=== PATIENT | male | born 1990 | race African-American/Black ===

== ENCOUNTER 2018-09-17 19:35 | Emergency (ER) | payer BC ==
[2018-09-17 20:07] VITALS: TEMP 99.6; O2SAT 100
[2018-09-17] MEDS: KETOROLAC TROMETHAMINE INJ 30 MG/ML VIAL IV ONE (20:37)
--- NOTE | 2018-09-17 20:48 | RAD ---
EXAM DESCRIPTION: Chest,1 View CLINICAL HISTORY: 28 years Male, chest pain Comparison: None FINDINGS: Single AP view of the chest Cardiomediastinal silhouette is within normal limits. No focal lung consolidation. No pleural effusion. No pneumothorax. No acute osseous finding. IMPRESSION: No acute chest finding. Electronically signed by: Lois Brunson MD 09/17/2018 8:47 PM [employer]
--- NOTE | 2018-09-17 21:14 | ED.PDOC ---
History of Present Illness - General Chief Complaint: Blood Pressure Problem Time Seen by Provider: 09/17/18 20:15 Source: patient Exam Limitations: no limitations - History of Present Illness Initial Comments: PT C/O NOT FEELING WELL. HAS CHRONIC HYPERTENSION BUT HAS NOT BEEN TAKING HIS MEDICATION ROUTINELY. TODAY WAS EATING WHEN HE BEGAN TO NOT FEEL WELL. FELT LIKE HIS BP WAS UP SO HE WENT HOME AND TOOK HIS MEDICATION. CONTINUED NOT TO FEEL WELL SO HE CAME FOR EVALUATION. Severity: mild Improving Factors: nothing Worsening Factors: nothing Associated Symptoms: diaphoresis Allergies/Adverse Reactions: Allergies NO KNOWN ALLERGY Allergy (Verified 09/17/18 19:52) Home Medications: Ambulatory Orders Amlodipine Besylate [Amlodipine Besylate] 5 mg PO DAILY 09/17/18 Metoprolol Tartrate [Lopressor] 25 mg PO BID 09/17/18 Review of Systems - Review of Systems Constitutional: Denies: chills, fever EENTM: States: no symptoms reported Respiratory: Denies: cough, short of breath Cardiology: Denies: chest pain, palpitations Gastrointestinal/Abdominal: Denies: nausea, vomiting Genitourinary: States: no symptoms reported Musculoskeletal: States: no symptoms reported Skin: States: other - SLIGHT DIAPHORESIS Neurological: Denies: numbness, weakness Endocrine: States: no symptoms reported Hematologic/Lymphatic: States: no symptoms reported Past Medical History (General) - Patient Medical History Hx Stroke: No Hx Congestive Heart Failure: No Hx Hypertension: Yes Hx Diabetes: No Hx MRSA: No - Vaccination History Hx Influenza Vaccination: No Hx Pneumococcal Vaccination: No - Social History Hx Tobacco Use: Yes Hx Alcohol Use: No - Social use Family Medical History - Family History Father Living Status: Still Living Hx Family Hypertension: Yes Physical Exam - Physical Exam General Appearance: Alert, No apparent distress Eye Exam: bilateral normal Ears, Nose, Throat: hearing grossly normal, normal ENT inspection Neck: full range of motion, supple Respiratory: lungs clear, normal breath sounds Cardiovascular/Chest: regular rate, rhythm, no murmur Gastrointestinal/Abdominal: non tender, soft, no organomegaly Back Exam: normal inspection, no CVA tenderness Extremity: normal range of motion, non-tender Neurologic: no motor/sensory deficits, alert, normal mood/affect, oriented x 3 Skin Exam: normal color, warm/dry Lymphatic: no adenopathy Progress - Progress Progress: 09/17/18 23:22 REPEAT LAB NEG. VSS. STILL SOMEWHAT HTN BUT WILL NOT TREAT PT JUST TOOK HIS MEDS AT 1800. ENCOURAGED HIM TO STAY COMPLIANT AND F/U WITH PCP HE AGREED. - EKG/XRAY/CT EKG: Sinus - RATE: 68, NL AXIS, NL INTERVALS, LVH, , nonspecific ST T wave Chg - NAIP, NO OLD FOR COMPARISON XRAY: chest - LUIZ Departure - Departure Clinical Impression: Elevated blood pressure reading, Malaise, Non compliance with medical treatment Hypertension Qualifiers: Hypertension type: essential hypertension Qualified Code(s): I10 - Essential ( primary) hypertension Time of Disposition: 23:23 Disposition: Discharge to Home or Self Care Condition: Good Departure Forms: ED Discharge - Pt. Copy, Patient Portal Self Enrollment Instructions: DI for High Blood Pressure Home Medications: Ambulatory Orders Amlodipine Besylate [Amlodipine Besylate] 5 mg PO DAILY 09/17/18 Metoprolol Tartrate [Lopressor] 25 mg PO BID 09/17/18
[2018-09-17 23:31] VITALS: BP 131/75
== END 2018-09-17 23:30 | disposition home or self-care (01) ==
LOC: ER 19:35
DX: I10 Essential (primary) hypertension (principal); R53.81 Other malaise; Z91.14 Patient's other noncompliance with medication regimen
CPT/HCPCS: 36415; 71045; 80053; 83880; 84484; 85025; 93005; J1885

== ENCOUNTER 2020-11-25 16:05 | Emergency (ER) | payer BC ==
--- NOTE | 2020-11-25 16:15 | ED.PDOC ---
History of Present Illness - General Time Seen by Provider: 11/25/20 16:07 Source: patient, RN notes reviewed, Vital Signs reviewed Exam Limitations: no limitations - History of Present Illness Initial Comments: Pt has h/o HTN and vertigo. Presents to ED with 1 day h/o "feeling like my head is retaining water." States his ears feel full. He denies fever, congestion, cough, sore throat, ear pain or SOB. States he has been urinating more than usual today, but denies dysuria or hematuria. No NVD or abdominal pain. Allergies/Adverse Reactions: Allergies NO KNOWN ALLERGY Allergy (Verified 09/17/18 19:52) Home Medications: Ambulatory Orders Amlodipine Besylate 10 mg PO DAILY 09/17/18 Hydrochlorothiazide 12.5 mg PO DAILY 11/25/20 Review of Systems - Review of Systems Constitutional: Denies: chills, fever, weakness EENTM: Denies: blurred vision, ear pain, ear discharge, nose pain, nose congestion, throat pain, mouth pain Respiratory: Denies: cough, short of breath Cardiology: Denies: chest pain, palpitations, syncope Gastrointestinal/Abdominal: Denies: abdominal pain, diarrhea, nausea, vomiting Musculoskeletal: Denies: back pain, neck pain Neurological: Denies: headache, numbness, tingling All other Systems: Reviewed and Negative Past Medical History (General) - Patient Medical History Hx Stroke: No Hx Congestive Heart Failure: No Hx Hypertension: Yes Hx Diabetes: No Hx MRSA: No - Vaccination History Hx Influenza Vaccination: No Hx Pneumococcal Vaccination: No - Social History Hx Tobacco Use: Yes Hx Alcohol Use: No - Social use Family Medical History - Family History Father Living Status: Still Living Hx Family Hypertension: Yes Physical Exam - Physical Exam General Appearance: Alert, Comfortable, No apparent distress Eye Exam: bilateral normal - PERRL Ears, Nose, Throat: other - bilateral TMs have no erythema or effusion. no sinus tenderness Neck: non-tender, full range of motion, supple Respiratory: chest non-tender, lungs clear, normal breath sounds, no respiratory distress Cardiovascular/Chest: regular rate, rhythm, no edema, no murmur Gastrointestinal/Abdominal: non tender, soft, no pulsatile mass Back Exam: no CVA tenderness, no vertebral tenderness Extremity: non-tender, normal inspection, no pedal edema Neurologic: no motor/sensory deficits, alert, normal mood/affect Skin Exam: normal color, warm/dry Progress - Progress Progress: 11/25/20 18:30 Pt presents with 1 day h/o bilateral ear fullness. Unremarkable ENT exam. Labs reassuring. He has no respiratory distress or hypoxia. COVID test NEGATIVE. He will take OTC decongestant and f/u with pcp in 1-2 days for recheck and continued evaluation. SRP given. - Results/Orders Results/Orders: 11/25/20 16:12 IV:Start .ONCE Laboratory Results - last 24 hr 11/25/20 11/25/20 11/25/20 16:20 16:20 18:11 WBC 6.6 RBC 6.30 H Hgb 16.3 Hct 49.6 MCV 78.7 L MCH 25.9 L MCHC 32.9 L RDW 13.6 Plt Count 233 MPV 7.6 Absolute Neuts (auto) 4.10 Absolute Lymphs (auto) 1.60 Absolute Monos (auto) 0.70 Absolute Eos (auto) 0.20 Absolute Basos (auto) 0.10 Neutrophils % 62.0 Lymphocytes % 24.5 Monocytes % 10.1 H Eosinophils % 2.6 Basophils % 0.8 Sodium 133 L Potassium 3.9 Chloride 96 L Carbon Dioxide 25 Anion Gap 15.9 BUN 15 Creatinine 1.49 H BUN/Creatinine Ratio 10.1 Random Glucose 102 Serum Osmolality 267.4 L Calcium 9.4 Total Bilirubin 1.3 H AST 46 H ALT 62 H Alkaline Phosphatase 67 Serum Total Protein 8.2 Albumin 4.6 Globulin 3.6 H Albumin/Globulin Ratio 1.3 Urine Color Yellow Urine Appearance Clear Urine pH 7.0 Ur Specific [place] 1.015 Urine Protein Negative Urine Glucose (UA) Negative Urine Ketones Negative Urine Blood Negative Urine Nitrite Negative Urine Bilirubin Negative Urine Urobilinogen 0.2 Ur Leukocyte Esterase Negative Urine RBC 0-1 Urine WBC 0 Ur Epithelial Cells 0 Urine Bacteria 0 Departure - Departure Clinical Impression: Congestion of both ears, Elevated blood pressure reading Time of Disposition: 18:29 Disposition: Discharge to Home or Self Care Condition: Good Instructions: High Blood Pressure (DC) Diet: low salt diet Activity: increase activity as tolerated Referrals: Sonal Connor PA [Primary Care Provider] - 1-2 Days Home Medications: Ambulatory Orders Amlodipine Besylate 10 mg PO DAILY 09/17/18 Hydrochlorothiazide 12.5 mg PO DAILY 11/25/20
[2020-11-25 17:33] VITALS: O2SAT 100
[2020-11-25 18:45] VITALS: BP 148/92; TEMP 98.3
== END 2020-11-25 18:35 | disposition home or self-care (01) ==
LOC: ER 16:05
DX: H83.8X3 Other specified diseases of inner ear, bilateral (principal); I10 Essential (primary) hypertension; Z20.822 Contact with and (suspected) exposure to COVID-19; Z87.891 Personal history of nicotine dependence; Z79.899 Other long term (current) drug therapy